=== PATIENT | female | born 1935 | race Caucasian/White ===

== ENCOUNTER 2017-09-01 09:35 | Outpatient (CLI) | payer MEDICARE ==
--- NOTE | 2017-09-01 11:18 | CT ---
CT OF HEAD NONCONTRAST: Clinical history: History of subdural hematoma. Comparison: CT head from [facility], 07-28-17. FINDINGS: There has been progression in size of mixed density predominately acute to early subacute subdural he matoma overlying the left convexity which demonstrates a maximum thickness of approximately 12 mm whi ch does result in effacement of the left cerebral sulci as well as rightward subfalcine herniation me asuring 7-8 mm at the level of the septum pellucidum. This mass effect is new from prior exam. There is moderate chronic microvascular ischemic disease. No ventriculomegaly. IMPRESSION: Progressive volume mixed density, predominately acute to early subacute in appearance with associated increasing mass effect and rightward subfalcine herniation. These findings were telephoned to patient's Neurosurgeon, Phu Morocho, 1010 hours, 09-01-17. POS: ANA
== END 2017-09-01 09:36 | disposition home or self-care (01) ==
LOC: TBSIIMAG 09:35
PROVIDERS: ATTEND Neurological Surgery
DX: S06.5X0A Traumatic subdural hemorrhage without loss of consciousness, initial encounter (principal)
CPT/HCPCS: 70450

== ENCOUNTER 2017-09-15 10:43 | Outpatient (CLI) | payer MEDICARE ==
--- NOTE | 2017-09-15 13:10 | CT ---
CT BRAIN NONCONTRAST: DATE: 09/15/17 HISTORY: 82-year-old female, follow-up left subdural hematoma, S06.5X0A. COMPARISON: 09/01/17. FINDINGS: The left frontotemporoparietal subdural hematoma has mixed densities. It is predominantly isointense relative to brain parenchyma, as was the case previously (subacute blood). There are small strips of hyperdensity in the anterior frontal region of this subdural hematoma, representing regions of relati vely acute hemorrhage which have increased in volume since the previous CT. There is also a mixture o f higher density, more acute blood, at the left parietal convexity. Despite the increase in the acute hemorrhagic components, the actual volume of the subdural hematoma is slightly smaller now compared to the previous. For example, at the anterior aspect of level of rafi vian fissure, the transverse dimension is approximately 0.8 cm, whereas it was previously approximate ly 1.0 cm. The widest transverse dimension of the subdural hematoma, at the upper left parietal region, is curre ntly approximately 1.5 cm, whereas was previously approximately 1.6 cm. The mild left to right midline shift of the septum pellucidum is currently approximately 0.3 cm, and was previously approximately 0.4 cm. The ventricles are normal in size and configuration. Again noted are the moderate patchy chronic isch emic white matter changes of the cerebrum. There is no acute intra-axial hemorrhage. No depressed sha varial fracture. IMPRESSION: 1. Left supratentorial subdural hematoma with mixed ages of blood, both subacute and acute. 2. Although there are greater portions of acute hemorrhage now than previously, the overall size of the subdural hematoma has slightly decreased, and the mild mass effect and the mild degree of subfalc ine herniation have minimally decreased. 3. Chronic ischemic white matter changes due to microvascular atherosclerosis. LUZ MARINA Villareal POS: ANA
== END 2017-09-15 10:44 | disposition home or self-care (01) ==
LOC: TBSIIMAG 10:43
PROVIDERS: ATTEND Neurological Surgery
DX: S06.5X9D Traumatic subdural hemorrhage with loss of consciousness of unspecified duration, subsequent encounter (principal); I65.23 Occlusion and stenosis of bilateral carotid arteries; I67.2 Cerebral atherosclerosis
CPT/HCPCS: 70450

== ENCOUNTER 2017-10-05 12:59 | Outpatient (CLI) | payer MEDICARE ==
--- NOTE | 2017-10-05 14:19 | CT ---
NONCONTRAST HEAD CT: COMPARISON: 09/15/17, 09/01/17. HISTORY: Followup subdural. TECHNIQUE: A noncontrast head CT is performed from the skull base to the skull vertex. FINDINGS: Redemonstration of predominantly isodense to slightly hyperdense collection along the frontal, tempor al, and parietal convexities. Maximum diameter is 1 cm (previously 1.4 cm). There is stable minimal mass effect upon the left cerebrum. No significant midline shift. Basilar cisterns are patent. Co rtical bennett-white matter differentiation is preserved. No hydrocephalus. The calvarium is intact. Adequate aeration of the sinuses and mastoid air cells. IMPRESSION: Redemonstration of a left-sided subdural. There is minimal decrease in size when compared to the molly or examination. The subdural continues to have some hyperdensity, likely representing retracted clot material rather than an acute component, given the interval decrease in size. POS: [facility]
== END 2017-10-05 13:00 | disposition home or self-care (01) ==
LOC: TBSIIMAG 12:59
PROVIDERS: ATTEND Neurological Surgery
DX: S06.5X9D Traumatic subdural hemorrhage with loss of consciousness of unspecified duration, subsequent encounter (principal)
CPT/HCPCS: 70450

== ENCOUNTER 2018-01-14 14:14 | Outpatient (CLI) | payer MEDICARE ==
--- NOTE | 2018-01-14 16:28 | CT ---
CT HEAD NONCONTRAST: INDICATIONS: Headache. History of prior intracranial hemorrhage. COMPARISON: 10/05/2017 FINDINGS: Prior extraaxial hemorrhage fluid collection overlying the left convexity has resolved. There is no significant residual intracranial hemorrhage. No mass effect or midline shift. There is moderate ch ronic microvascular ischemic disease. Age-related mild parenchymal atrophy and compensatory dilatati on of the ventricular system is present. IMPRESSION: 1. Resolution of prior extraaxial hemorrhage. No acute intracranial hemorrhage is demonstrated. 2. Moderate chronic microvascular ischemic disease. POS: ANA
== END 2018-01-14 14:15 | disposition home or self-care (01) ==
LOC: TBSIIMAG 14:14
PROVIDERS: ATTEND Neurological Surgery
DX: I67.82 Cerebral ischemia (principal); R51 Headache
CPT/HCPCS: 70450